=== PATIENT | male | born 1980 | race American Indian/Alaskan Native ===

== ENCOUNTER 2018-12-07 20:20 | Emergency (ER) | payer BC ==
--- NOTE | 2018-12-07 20:50 | Emergency Department Report ---
Chief Complaint: Dental/Oral Stated Complaint: INFECTED TOOTH Time Seen by Provider: 12/07/18 20:46 - HPI History of Present Illness: dental pain started last night saw dentist nov 26, needs dental extraction no fever no facial swelling tylenol taken for the pain no allergies advised pt he needs to follow up with his dentist MSE screening note: Focused history and physical exam performed. ED Disposition for MSE Condition: Stable
--- NOTE | 2018-12-07 22:10 | Emergency Department Report ---
ED ENT HPI - General Chief complaint: Dental/Oral Stated complaint: INFECTED TOOTH Time Seen by Provider: 12/07/18 22:05 Source: patient Mode of arrival: Ambulatory Limitations: No Limitations - History of Present Illness MD complaint: tooth pain -: Sudden, days(s) (1) Location: tooth # Severity: severe Severity scale (0 -10): 10 Quality: stabbing Consistency: constant Improves with: NSAID, rest Worsens with: eating Context- Dental: history of dental caries Associated Symptoms: toothache. denies: fever, cough, gum swelling, pain with swallowing, sore throat, tinnitus, hearing loss, discharge from ear, rhinorrhea - Related Data Previous Rx's Medication Instructions Recorded Last Taken Type Amoxicillin [Amoxicillin TAB] 875 mg PO BID 10 Days #20 tablet 12/07/18 Unknown Rx traMADol [Ultram] 50 mg PO Q4HR PRN #12 tablet 12/07/18 Unknown Rx Allergies Allergy/AdvReac Type Severity Reaction Status Date / Time No Known Allergies Allergy Unverified 12/07/18 20:22 ED Dental HPI - General Chief complaint: Dental/Oral Stated complaint: INFECTED TOOTH Time Seen by Provider: 12/07/18 20:46 Source: patient Mode of arrival: Ambulatory Limitations: No Limitations - Related Data Previous Rx's Medication Instructions Recorded Last Taken Type Amoxicillin [Amoxicillin TAB] 875 mg PO BID 10 Days #20 tablet 12/07/18 Unknown Rx traMADol [Ultram] 50 mg PO Q4HR PRN #12 tablet 12/07/18 Unknown Rx Allergies Allergy/AdvReac Type Severity Reaction Status Date / Time No Known Allergies Allergy Unverified 12/07/18 20:22 ED Review of Systems ROS: Stated complaint: INFECTED TOOTH Other details as noted in HPI Constitutional: denies: chills, fever Eyes: denies: eye pain, eye discharge, vision change ENT: as per HPI. denies: ear pain, throat pain Respiratory: denies: cough, shortness of breath, wheezing Cardiovascular: denies: chest pain, palpitations Endocrine: no symptoms reported Gastrointestinal: denies: abdominal pain, nausea, diarrhea Genitourinary: denies: urgency, dysuria Musculoskeletal: denies: back pain, joint swelling, arthralgia Skin: denies: rash, lesions Neurological: denies: headache, weakness, paresthesias Psychiatric: denies: anxiety, depression Hematological/Lymphatic: denies: easy bleeding, easy bruising ED Past Medical Hx - Past Medical History Previous Medical History?: No - Surgical History Past Surgical History?: No - Family History Family history: no significant - Social History Smoking Status: Current Every Day Smoker Substance Use Type: Alcohol - Medications Home Medications: Home Medications Medication Instructions Recorded Confirmed Last Taken Type Amoxicillin [Amoxicillin TAB] 875 mg PO BID 10 Days #20 tablet 12/07/18 Unknown Rx traMADol [Ultram] 50 mg PO Q4HR PRN #12 tablet 12/07/18 Unknown Rx ED Physical Exam - General Limitations: No Limitations General appearance: alert, in no apparent distress - Head Head exam: Present: atraumatic, normocephalic - Eye Eye exam: Present: normal appearance - ENT ENT exam: Present: mucous membranes moist - Expanded ENT Exam Expanded Teeth exam: Present: dental caries - Neck Neck exam: Present: normal inspection - Respiratory Respiratory exam: Present: normal lung sounds bilaterally. Absent: respiratory distress - Cardiovascular Cardiovascular Exam: Present: regular rate, normal rhythm. Absent: systolic murmur, diastolic murmur, rubs, gallop - GI/Abdominal GI/Abdominal exam: Present: soft, normal bowel sounds - Rectal Rectal exam: Present: deferred - Extremities Exam Extremities exam: Present: normal inspection - Back Exam Back exam: Present: normal inspection - Neurological Exam Neurological exam: Present: alert, oriented X3 - Psychiatric Psychiatric exam: Present: normal affect, normal mood - Skin Skin exam: Present: warm, dry, intact, normal color. Absent: rash ED Course Vital Signs 12/07/18 12/07/18 20:46 22:41 Temperature 98 F Pulse Rate 84 58 L Respiratory 16 Rate Blood Pressure 151/111 Blood Pressure 134/60 [Right] O2 Sat by Pulse 100 Oximetry ED Medical Decision Making - Medical Decision Making Patient is a 38-year-old male that presents to emergency room with complaints of right upper tooth pain. Patient states started last night. Patient's pain appears to be secondary to dental caries. No signs of infection noted. No abscess noted. Patient was treated with antibiotics and pain meds. Blood pressure was initially high however was rechecked and return to normal. Patient states he has a dentist appointment tomorrow. Patient instructed to keep his dental appointment and follow up with his primary care. Patient given discharge instructions. Patient was understanding of discharge instructions. - Differential Diagnosis dental caries. Dental pain. Dental infection. Critical care attestation.: If time is entered above; I have spent that time in minutes in the direct care of this critically ill patient, excluding procedure time. ED Disposition Clinical Impression: Dental caries, Pain, dental, Elevated blood pressure reading Disposition: TO HOME OR SELFCARE Is pt being admited?: No Does the pt Need Aspirin: No Condition: Stable Instructions: Dental Caries (ED), Toothache (ED) Additional Instructions: Patient follow up primary care in 2-3 days. Patient to follow up with dentist within 2 days. Patient to return to ER if condition worsens. Patient take meds as directed. Patient to take Tylenol for when necessary for pain. Prescriptions: Amoxicillin [Amoxicillin TAB] 875 mg PO BID 10 Days #20 tablet traMADol [Ultram] 50 mg PO Q4HR PRN #12 tablet PRN Reason: Pain Time of Disposition: 22:54
[2018-12-07 23:28] VITALS: BP 134/60
== END 2018-12-07 23:13 | disposition home or self-care (01) ==
LOC: ED 20:20
DX: K02.9 Dental caries, unspecified (principal); F17.200 Nicotine dependence, unspecified, uncomplicated; R50.9 Fever, unspecified
CPT/HCPCS: 99282

== ENCOUNTER 2018-12-18 21:50 | Emergency (ER) | payer BC, OTHER ==
[2018-12-18 21:58] VITALS: BP 117/70
--- NOTE | 2018-12-18 21:59 | Emergency Department Report ---
Blank Doc - Documentation Documentation: this is a 38-year-old male that presents with nose pain with abrasion and head ache. Denies any other injuries or trauma. This initial assessment/diagnostic orders/clinical plan/treatment(s) is/are subject to change based on patient's health status, clinical progression and re- assessment by fellow clinical providers in the ED. Further treatment and workup at subsequent clinical providers discretion. Patient/guardians urged not to elope from the ED as their condition may be serious if not clinically assessed and managed. Initial orders include: 1- Patient sent to [facility] for further evaluation and treatment 2- CT facial bone and headache
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
--- NOTE | 2018-12-18 23:26 | Cat Scan Report ---
PROCEDURE: CT facial bones without contrast. TECHNIQUE: Computerized tomography of the facial bones and soft tissues with axial and coronal secti ons performed from the cranial aspect of the frontal sinuses to the caudal portion of the mandible wi thout contrast material. Automated exposure control, adjustment of mA and/or kV according to patient size, or iterative reconstruction dose optimization techniques were utilized. CT DOSE LENGTH PRODUCT: 581.66 mGycm HISTORY: Headache. COMPARISONS: None. FINDINGS: The facial bones appear intact. There are no fractures. The orbital contents appear normal. There are no blowout-type injuries. The paranasal sinuses and mastoid air cells are clear. The ostiomeatal com plexes are patent. There is no stefanie bullosa. There is minimal deviation of the nasal septum to the left. The facial soft tissues are unremarkable. There is an incompletely imaged extra-axial fluid col lection anterior to the left frontal lobe of the brain. This may represent an arachnoid cyst. IMPRESSION: Normal study of the facial bones. This document is electronically signed by Thompson Rothman MD., December 18 2018 11:24:12 PM ET
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
== END 2018-12-19 01:47 | disposition home or self-care (01) ==
LOC: ED 21:50
DX: S00.31XA Abrasion of nose, initial encounter (principal); G47.00 Insomnia, unspecified; F17.200 Nicotine dependence, unspecified, uncomplicated; V89.2XXA Person injured in unspecified motor-vehicle accident, traffic, initial encounter; Y93.89 Activity, other specified; Y92.488 Other paved roadways as the place of occurrence of the external cause; Y99.8 Other external cause status
CPT/HCPCS: 70450; 70486; 99284

== ENCOUNTER 2020-03-08 09:53 | Emergency (ER) | payer SELFPAY ==
[2020-03-08 10:12] VITALS: BP 138/74
== END 2020-03-08 10:53 | disposition left against medical advice (07) ==
LOC: ED 09:53
DX: H60.91 Unspecified otitis externa, right ear (principal)
CPT/HCPCS: 99282